=== PATIENT | male | born 1985 | race Two or more races ===

== ENCOUNTER 2016-07-04 10:02 | Emergency (ER) | payer MEDICAID ==
[~2016-07-04] VITALS: Ht 165.1 cm; Wt 63.5 kg
[2016-07-04 10:48] VITALS: BP 128/81
== END 2016-07-04 11:20 | disposition home or self-care (01) ==
LOC: ER 10:02
DX: K02.9 Dental caries, unspecified (principal); L03.211 Cellulitis of face; Y08.89XA Assault by other specified means, initial encounter; Y93.89 Activity, other specified; Y99.8 Other external cause status; Y92.89 Other specified places as the place of occurrence of the external cause

== ENCOUNTER 2019-05-24 12:24 | Emergency (ER) | payer SELFPAY | END 2019-05-24 12:29 | disposition left against medical advice (07) | LOC: ER 12:24 | DX: R22.0 Localized swelling, mass and lump, head (principal); Z53.21 Procedure and treatment not carried out due to patient leaving prior to being seen by health care provider ==

== ENCOUNTER 2025-03-13 17:08 | Emergency (ER) | payer MEDICAID ==
[~2025-03-13] VITALS: Ht 165.1 cm; Wt 68.4 kg
[2025-03-13 17:09] VITALS: BP 149/86; PULSE 85; RESP 18; TEMP 98; O2SAT 98
--- NOTE | 2025-03-13 18:34 | ED.PDOC ---
Eye-HPI HPI Comments HPI: 40-year-old male who came to ER for eye problems. He denies any medical problems. States for the past 2 days has been experiencing blurriness of the left eye. Denies any pain. Denies any headaches or dizziness. Denies any trauma Past Medical History: Denies Past Surgical History: Denies Social History: Denies HPI: Poor Historian. REVIEW OF SYSTEMS: CONSTITUTIONAL: Denies acute: fever, diaphoresis, chills, generalized weakness. HEAD: Denies acute: headache, photophobia Eyes: Denies acute: Double vision, vision loss, eye pain, eye discharge. EARS: Denies acute: tinnitus, hearing loss, ear discharge, ear pain, THROAT: Denies acute: sore throat, swelling, difficulty swallowing , pain with swallowing, change in voice. NECK: Denies acute: neck pain, neck swelling, stiff neck. HEART: Denies acute : chest pain, palpitations, LUNGS: Denies acute: SOB, wheezing, cough, hemoptysis ABDOMEN: Denies acute: abdominal pain, Nausea, Vomiting, diarrhea, melena , hematemesis, hematochezia SKIN: Denies acute: rash, redness, lesions, itchiness. EXTREMITIES: Denies acute: calf pain, numbness, tingling, weakness, denies pain in extremity. Denies acute: Low back pain. Neuro: Denies acute: focal neurological deficit, motor or sensory focal neurological deficit, tremors, seizure like activity, confusion, dizziness, change in mental status, loss of bowel or bladder function, cauda equina like symptoms. : Denies acute: dysuria, hematuria, flank pain, increase in urinary frequency. PSYCH: Denies acute: hallucination, suicidal ideation, homicidal ideation. PHYSICAL EXAM: General: ----no----acute distress, awake and alert. Head: normocephalic, atraumatic. No raccoon's eyes, no tillman sign. Neck: supple, trachea is midline, no swelling. Throat: Normal phonation. Eyes:, no purulent discharge, no proptosis, no icterus. Noted left eye conjunctivitis consensus with pink eye. Heart: regular rate, regular rhythm, no significant murmur appreciated. Lungs: no apparent respiratory distress, Able to speak in full sentences. No wheezing, no rhonchi, no crackles. No stridors Clear to auscultation bilaterally. Abdomen: non tender to palpation, non distended, soft, no guarding, no rebound, + bowel sounds. Neuro: Awake, Alert, oriented to name, self, situation, follows commands GCS=15. Speech is normal. Skin: no petechia, no purpura, no cyanosis, non-pale, not jaundice. Lower extremities: --no - Pitting edema no deformity, no focal swelling, no calf TTP. Makes eye contact. moves all four extremities. Face: no apparent facial droop. Ambulating in the ED independently. PERRLA, EOM-I CN 2-12 are grossly intact, No nystagmus. No nuchal rigidity, Kernig's sign, Brudzinski's sign, no meningeal signs. ED COURSE: DISCLAIMER: This medical document was created using an electronic medical record system with voice recognition software and computerized dictation system. Although this document has been carefully reviewed, there might still be some phonetic and typographical errors. Occasional wrong-word or "sound-alike" substitutions may have occurred due to the inherent limitations of voice recognition software. These areas are purely typographical due to imperfections of the software programs and do not reflect any compromise in the patient's medical care. Please read the chart carefully and recognize, using context, where these substitutions have occurred. Chief Complaint: Eye Problem Time Seen by MD: 18:34 Primary Care Provider: NONE Reviewed Notes: Nurses Notes Allergies: Coded Allergies: NO KNOWN ALLERGIES (Unverified , 03/13/25) Home Meds Active Scripts Ciprofloxacin HCl (Ophth) (Ciprofloxacin Hydrochlori) 0.3 % Radha, 0.3 % OP Q2HR for 7 Days, #1 BOTTLE Two drops every 2 hours while awake for two days thin 4 times daily for five days. Prov:OBI GONZALEZ 03/13/25 Information Source: Patient Mode of Arrival: Ambulatory Past Medical History PAST MEDICAL HISTORY: Denies Surgical History: Denies all surgeries Family History Family History: Reviewed,noncontributory to illness Social History Smoker: Non-Smoker Alcohol: Denies ETOH Use Drugs: Denies Drug Use Lives In: Home Was a procedure done? Was a procedure done?: No EENT DIFF Eye: Chalazion, Conjunctivitis, Allergic, Bacterial, Chlamydial, Viral, Corneal Abrasion, Corneal Lacerations, Corneal Ulceration, Foreign Body-Conjunctiva, Foreign Body-Corneal, Foreign Body-Intraocular, Foreign Body-Lid, Glaucoma, Globe Rupture, Hordeolum (stye), Iritis/Uveitis, Orbital Cellulits, Periorbital Cellulits, Retinal Artery Occlusion, Retinal Vein Occlusion, Rust Ring, Subconjunctival Hemorrhag, Ultraviolet Keratitis, Virtreous Hemorrhage X-Ray, Labs, Meds, VS Vital Signs Date Time Temp Pulse Resp B/P (MAP) Pulse Ox O2 Delivery O2 Flow Rate FiO2 03/13/25 17:09 98.0 85 18 149/86 98 98.0 Time of 1ST Reevaluation: 18:32 Reevaluation 1ST: Unchanged Patient Education/Counseling: Diagnosis, Treatment Family Education/Counseling: No Family Present Comments MDM: patient presented with the above HPI.----left pink eye--workup was initiated. patient was found with the above mentioned diagnosis. the following medications were ordered: please refer to order lists of meds and tests obtained by myself Dr. Gonzalez. Patient ED course and VS have been stabilized. Patient has been reassessed in the ED and remained in a stable condition. Pertinent incidental findings were discussed with the patient and/or family. Patient/family voices understanding and is agreeable with plan. Patient has been observed in the ED adequate length of time to insure improvement/stability. Escalation of care considered: Consideration of escalation to observation or admission No stroke findings. Patient was DISCHARGED home in a stable condition. All the reports of any imaging studies that were ordered by myself were reviewed by myself. SEPSIS Sepsis Screen Date sepsis recognized/suspect: Mar 13, 2025 Time Sepsis recognized/suspect: 1710 Recent Procedure: No On Antibiotic Therapy: No Respiratory Rate >20: No Heart Rate >90: No Temp<36 C (96.8 F) or >38.3 C: No SBP <90 or MAP <65 mmHG: No New Acute Mental Status Change: No Is the patient on CPAP, BIPAP,: No Vital Signs Date Time Temp Pulse Resp B/P (MAP) Pulse Ox O2 Delivery O2 Flow Rate FiO2 03/13/25 17:09 98.0 85 18 149/86 98 98.0 Departure 1 Departure Time of Disposition: 18:43 Impression: Primary Impression: [facility] eye Additional Impression: Conjunctivitis Disposition: HOME / SELF CARE / HOMELESS Condition: Stable Additional Instructions: Additional instructions: Please read all instructions provided in this packet carefully. You MUST follow-up with your primary care/family doctor in 1 to 2 days. If you are unable to see your primary care/family doctor, please return to our emergency room for re-assessment and re-evaluation in 1 to 2 days. Return to the emergency room here in our facility or to the nearest ER [facility] if your symptoms change or worsen. CONSULTATIONS: you MUST Follow-up for consultation as soon as possible with: -hcc coders and neurologist in 1-2 days. Please call for appointment. You MUST call the consultants office yourself to make an appointment. You may need to arrange that through your insurance and/or your primary/family doctor. If you are unable to see the education sales consultant in 1 to 2 days, you must return to our emergency room (or any other ER of your choice) for re-assessment and re- evaluation. Adequate fluid hydration. Although you have been discharged from the Emergency Department, this does not mean that you have a "clean bill of health". No definitive diagnosis for your symptoms has been made today. It is possible that you are in the process of dev eloping a serious illness. This is why you must return to the ED without fail if any new or worsening symptoms develop. Apply the antibiotics as prescribed. e-Prescriptions Ciprofloxacin HCl (Ophth) (Ciprofloxacin Hydrochlori) 0.3 % Radha 0.3 % OP Q2HR for 7 Days, #1 BOTTLE Two drops every 2 hours while awake for two days thin 4 times daily for five days. Prov: OBI GONZALEZ DO 03/13/25 Discharged With: Self Critical Care Note Critical Care Time?: No I personally scribed for OBI GONZALEZ DO ([email or web address]) on 03/13/25 at 18:34. Electronically submitted by Jax Ram ([email or web address]). OBI GONZALEZ DO Mar 13, 2025 18:34
[2025-03-13] MEDS ORDERED: CIPR0.3S67 OP (18:47)
== END 2025-03-13 18:58 | disposition home or self-care (01) ==
LOC: ER 17:08
DX: H10.022 Other mucopurulent conjunctivitis, left eye (principal); H10.89 Other conjunctivitis; H53.8 Other visual disturbances